=== PATIENT | male | born 1965 | race Caucasian/White ===

== ENCOUNTER 2021-07-07 15:44 | Emergency (ER) | payer OTHER, SELFPAY ==
--- NOTE | ~2021-07-07 | US_ITS ---
EXAMINATION: US venous doppler [facility] DATE: 07/07/2021 16:35 INDICATION: Left lower limb pain, tenderness and warmth TECHNIQUE: Grayscale ultrasound images without and with compression and Doppler ultrasound images of the left lower extremity veins were obtained. COMPARISON: None. FINDINGS: The visualized portions of left common femoral vein, profunda (deep) femoral vein, femoral vein, popl iteal vein, peroneal veins, posterior tibial veins, gastrocnemius vein and greater saphenous vein out flow are patent. IMPRESSION: 1. No deep venous thrombosis in the left lower limb. Reviewed, dictated and finalized at location B.
[2021-07-07 15:47] VITALS: BP 149/84; PULSE 84; RESP 16; TEMP 36.1; O2SAT 100
[2021-07-07 18:27] VITALS: BP 129/84; PULSE 71; O2SAT 100
--- NOTE | 2021-07-07 20:23 | ED.GENADULT ---
HPI - General Adult General Chief complaint: Extremity Injury, Lower Stated complaint: calf pain Time Seen by Provider: 07/07/21 19:56 Source: patient Mode of arrival: ambulatory Limitations: no limitations History of Present Illness HPI narrative: Patient is here for evaluation of left leg pain. He states that it started as a severe cramp in his left calf Humphrey night. He continued to have a knot there, no swelling. He was evaluated by family member who is a physician felt like his calf was warm and recommended that he come to the emergency room for a venous Doppler study. No history of blood clot or trauma. Onset (ago): day(s) Pain Consistency: now resolved Relieving factors: none Exacerbating factors: none Associated symptoms: denies other symptoms Related Data Allergies Allergy/AdvReac Type Severity Reaction Status Date / Time No Known Allergies Allergy Unverified 01/24/18 07:54 Review of Systems Review of Systems: All systems reviewed & are unremarkable except as noted in HPI and below PMFSH Social History Social History (Updated 07/07/21 @ 20:28 by Stacy Sheth PA-C) Smoking status: Never smoker Alcohol intake: never Substance use: never Living arrangements: with family Occupation/Education: occupation 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 Exam Const: General: healthy appearing, no acute distress and alert HENMT: Head: normal to inspection Eyes: Pupils: Equal, round and reactive pupils present Resp: Effort & Inspection: normal respiratory effort Auscultation: clear to auscultation bilaterally Cardio: Rate: regular rate Rhythm: regular rhythm Skin: General skin exam: normal color Extrem: General: normal to inspection Left lower extremity: full ROM, normal capillary refill and lower leg (no pain to palpation) Details: normal to inspection and no edema Psych: Mental Status: mental status grossly normal Course Course Emergency Course: Ultrasound was negative for DVT. Patient is asymptomatic at this time but is having muscle cramps at night. He does work outside discussed staying well-hydrated. Follow-up with his primary care physician. Vital Signs Vital signs: Vital Signs Temperature 36.1 C L 07/07/21 15:47 Pulse Rate 84 07/07/21 15:47 Respiratory Rate 16 07/07/21 15:47 Blood Pressure 149/84 H 07/07/21 15:47 Pulse Oximetry 100 07/07/21 15:47 Temperature 36.1 C L 07/07/21 15:47 Pulse Rate 71 07/07/21 18:27 Respiratory Rate 16 07/07/21 15:47 Blood Pressure 129/84 07/07/21 18:27 Pulse Oximetry 100 07/07/21 18:27 Medical Decision Making Vital Signs Vital Signs: Vital Signs Temperature 36.1 C L 07/07/21 15:47 Pulse Rate 84 07/07/21 15:47 Respiratory Rate 16 07/07/21 15:47 Blood Pressure 149/84 H 07/07/21 15:47 Pulse Oximetry 100 07/07/21 15:47 Temperature 36.1 C L 07/07/21 15:47 Pulse Rate 71 07/07/21 18:27 Respiratory Rate 16 07/07/21 15:47 Blood Pressure 129/84 07/07/21 18:27 Pulse Oximetry 100 07/07/21 18:27 Discharge Plan Discharge Clinical Impression: Muscle cramp, nocturnal Patient Disposition: Home, Self-Care Condition: Improved Instructions: Antibiotic Form, Leg Cramps (ED) Additional Instructions: Your ultrasound here showed no evidence of a blood clot in your left leg. Stay well-hydrated. May apply ice or heat to the affected muscle group. Follow-up with your primary care physician as needed. Follow-up/Referrals: Gerry Long MD [Primary Care Provider] - Time of Disposition: 20:25
[2021-07-07 20:49] VITALS: BP 128/89; PULSE 68; RESP 18; O2SAT 100
== END 2021-07-07 20:50 | disposition home or self-care (01) ==
PROVIDERS: Emergency Provider Emergency Medicine; PCP Family Medicine
DX: M62.831 Muscle spasm of calf (principal)
CPT/HCPCS: 93971; 99284